=== PATIENT | male | born 1945 | race Caucasian/White ===

== ENCOUNTER 2017-08-25 00:47 | Inpatient (IN) | payer MEDICARE, MEDICAID ==
[~2017-08-25] VITALS: Ht 162.6 cm; Wt 63.3 kg
[2017-08-25] MEDS ORDERED: PHEN15TA2 PO (01:06)
[2017-08-25] MEDS ORDERED: AMOX125T PO (01:06)
[2017-08-25] MEDS ORDERED: BACITRACIN ZINC OINT 500U/GM, 0.9 GM ONE (02:13)
[2017-08-25 03:40] VITALS: BP 161/76
[2017-08-25] MEDS ORDERED: hydrALAzine 20 MG/ML, 1ML IVPush PRN (04:00)
[2017-08-25] MEDS ORDERED: ACETAMINOPHEN 325 MG TABLET PO PRN (04:00)
[2017-08-25] MEDS ORDERED: POLYETHYLENE GLYCOL 17 GM PACKET PO PRN (04:00)
[2017-08-25] MEDS ORDERED: PROMETHAZINE 25 MG/ML, 1ML IM PRN (04:00)
[2017-08-25] MEDS ORDERED: morphine SULFATE 10 MG/ML, 1ML IVPush PRN (04:00)
[2017-08-25] MEDS ORDERED: ONDANSETRON ODT 4 MG PO PRN (04:00)
[2017-08-25] MEDS ORDERED: OXYcodone IR 5MG TABLET PO PRN (04:00)
[2017-08-25] MEDS ORDERED: BISACODYL 10 MG SUPP PR PRN (04:00)
[2017-08-25] MEDS ORDERED: DOCUSATE 100 MG CAPSULE PO PRN (04:00)
[2017-08-25] MEDS ORDERED: ONDANSETRON 2MG/ML, 2ML IVPush PRN (04:00)
[2017-08-25 05:37] LABS: BASOPHILS # (AUTO) 0.04 x10^3/uL (0-0.1); BASOPHILS % (AUTO) 1 % (0-1); EOSINOPHILS # (AUTO) 0.22 x10^3/uL (0-0.4); EOSINOPHILS % (AUTO) 3 % (1-7); LYMPHOCYTES # (AUTO) 1.38 x10^3/uL (1-3.4); LYMPHOCYTES % (AUTO) 19 % (22-44); MD NO; MEAN CORPUSCULAR HGB CONC 33.7 g/dL (33.2-36.2); MEAN CORPUSCULAR VOLUME 91.9 fL (81-97); MEAN PLATELET VOLUME 8.6 fL (7.4-10.4); MONOCYTES # (AUTO) 0.87 x10^3/uL (0.2-0.8); MONOCYTES % (AUTO) 12 % (2-9); NEUTROPHILS # (AUTO) 4.72 x10^3/uL (1.8-6.8); NEUTROPHILS % (AUTO) 65 % (42-75); PLATELET COUNT 327 x10^3/uL (130-400); RED BLOOD COUNT 3.39 x10^6/uL (4.38-5.82); RED CELL DISTRIBUTION WIDTH 15.1 % (9.4-14.8)
[2017-08-25 06:50] LABS: ALANINE AMINOTRANSFERASE 22 U/L (12-78); ALBUMIN 2.6 g/dL (3.4-5.0); ALKALINE PHOSPHATASE 123 U/L (45-117); ANION GAP 8 mmol/L (5-15); BILIRUBIN,TOTAL 0.5 mg/dL (0.2-1.0); CALCIUM 8.7 mg/dL (8.5-10.1); CHLORIDE 107 mmol/L (98-107); CREATININE 0.48 mg/dL (0.7-1.3); TOTAL PROTEIN 6.7 g/dL (6.4-8.2)
[2017-08-25 07:05] VITALS: BP 152/69
[2017-08-25 07:05] LABS: HEMOGLOBIN A1C 5.3 % (4.2-6.3)
[2017-08-25 07:52] LABS: CREATININE 0.51 mg/dL (0.7-1.3)
[2017-08-25] MEDS: AMOXICILLIN/CLAV 875-125MG TABLET PO SCH ×2 (08:44→20:32)
[2017-08-25] MEDS: ENOXAPARIN 40 MG/0.4 ML SQ SCH (08:45)
[2017-08-25 12:50] VITALS: BP 117/71
[2017-08-25 14:26] LABS: CULTURE INDICATED? YES; MICROSCOPIC INDICATED
[2017-08-25 20:06] VITALS: BP 117/70
[2017-08-25] MEDS ORDERED: PRIM250T PO (21:57)
[2017-08-26 01:07] VITALS: BP 111/62
[2017-08-26] MEDS ORDERED: SODIUM CHLORIDE 0.9%, 500ML IVBOLUS ONE (04:00)
[2017-08-26 08:41] VITALS: BP 155/85
[2017-08-26] MEDS: PHENOBARBITAL 30 MG TABLET PO SCH (09:53)
[2017-08-26] MEDS: AMOXICILLIN/CLAV 875-125MG TABLET PO SCH ×2 (09:53→21:03)
[2017-08-26] MEDS: PRIMIDONE 250 MG TABLET PO SCH (09:54)
[2017-08-26] MEDS: ENOXAPARIN 40 MG/0.4 ML SQ SCH (09:54)
[2017-08-26 14:36] VITALS: BP 135/82
[2017-08-26 19:32] VITALS: BP 125/71
[2017-08-27 03:21] VITALS: BP 116/68
[2017-08-27 08:15] VITALS: BP 119/72
[2017-08-27] MEDS: AMOXICILLIN/CLAV 875-125MG TABLET PO SCH ×2 (09:24→21:24)
[2017-08-27] MEDS: ENOXAPARIN 40 MG/0.4 ML SQ SCH (09:24)
[2017-08-27] MEDS: PRIMIDONE 250 MG TABLET PO SCH (09:25)
[2017-08-27] MEDS: PHENOBARBITAL 30 MG TABLET PO SCH (09:25)
[2017-08-27 12:43] VITALS: BP 122/78
[2017-08-27 19:53] VITALS: BP 100/64
[2017-08-28 01:48] VITALS: BP 98/54
[2017-08-28 02:00] VITALS: BP 126/74
[2017-08-28 09:03] VITALS: BP 128/79
[2017-08-28] MEDS: ENOXAPARIN 40 MG/0.4 ML SQ SCH (10:13)
[2017-08-28] MEDS: AMOXICILLIN/CLAV 875-125MG TABLET PO SCH (10:14)
[2017-08-28] MEDS: PRIMIDONE 250 MG TABLET PO SCH (10:14)
[2017-08-28] MEDS: PHENOBARBITAL 30 MG TABLET PO SCH (10:14)
[2017-08-28 12:34] VITALS: BP 136/78
[2017-08-28] MEDS ORDERED: AMOX1TAB12 PO (13:20)
[2017-08-28] MEDS ORDERED: ENOX40SY4 SQ (13:20)
[2017-08-28] MEDS ORDERED: POLY17PO5 PO (13:20)
[2017-08-28] MEDS ORDERED: ACET325T14 PO (13:20)
[2017-08-28 13:31] VITALS: BP 131/82
== END 2017-08-28 17:16 | DRG 542 ==
LOC: ED 02:13 → 4EST 02:15
PROVIDERS: ADMIT Internal Medicine; ATTEND Internal Medicine
DX: M80.061A Age-related osteoporosis with current pathological fracture, right lower leg, initial encounter for fracture (principal); E43 Unspecified severe protein-calorie malnutrition; D64.9 Anemia, unspecified; G40.909 Epilepsy, unspecified, not intractable, without status epilepticus; Z66 Do not resuscitate; W18.2XXA Fall in (into) shower or empty bathtub, initial encounter; W18.39XA Other fall on same level, initial encounter; Y93.E1 Activity, personal bathing and showering
CPT/HCPCS: 36415; 80053; 81001; 82565; 83036; 83735; 85025; 87086; 99285; J1650; J7040

== ENCOUNTER 2017-10-26 19:48 | Inpatient (IN) | payer MEDICARE, MEDICAID ==
[~2017-10-26] VITALS: Ht 162.6 cm; Wt 66.1 kg
[~2017-10-26 19:48] MED LIST: ACET325T14 PO; AMOX125T PO; AMOX1TAB12 PO; ENOX40SY4 SQ; PHEN15TA2 PO; POLY17PO5 PO; PRIM250T PO
[2017-10-26] MEDS ORDERED: ZOLP-413 PO (20:02)
[2017-10-26] MEDS ORDERED: PRIM250T PO (20:02)
[2017-10-26] MEDS ORDERED: LOPE2CAP94 PO (20:02)
[2017-10-26] MEDS ORDERED: OXYC-302 PO (20:02)
[2017-10-26] MEDS ORDERED: ENOX40SY4 SQ (20:02)
[2017-10-26] MEDS ORDERED: PHEN32.4 PO (20:02)
[2017-10-26] MEDS ORDERED: SODIUM CHLORIDE FLUSH 10ML SYR IVF PRN (21:30)
[2017-10-26] MEDS ORDERED: ONDANSETRON ODT 4 MG PO PRN (22:30)
[2017-10-26] MEDS ORDERED: LEVOFLOXACIN 750 MG TABLET PO SCH (22:30)
[2017-10-26] MEDS ORDERED: BISACODYL 10 MG SUPP PR PRN (22:30)
[2017-10-26 22:55] VITALS: BP 142/75
[2017-10-26] MEDS: SULFAMETH./TRIMETHOPRIM DS 800MG/160MG TABLET PO SCH (23:26)
[2017-10-26] MEDS: ENOXAPARIN 40 MG/0.4 ML SQ SCH (23:27)
[2017-10-27 01:12] VITALS: BP 116/73
[2017-10-27 07:59] VITALS: BP 115/70
[2017-10-27] MEDS: DOCUSATE 100 MG CAPSULE PO SCH ×2 (09:00→19:22)
[2017-10-27] MEDS: POLYETHYLENE GLYCOL 17 GM PACKET PO SCH (09:00)
[2017-10-27] MEDS: SULFAMETH./TRIMETHOPRIM DS 800MG/160MG TABLET PO SCH (10:04)
[2017-10-27] MEDS: PHENOBARBITAL 20 MG/5 ML ORAL SOL PO SCH (10:04)
[2017-10-27] MEDS: PRIMIDONE 250 MG TABLET PO SCH (10:04)
[2017-10-27] MEDS: DOXYCYCLINE 100MG TABLET PO SCH ×2 (12:07→19:59)
[2017-10-27] MEDS: CEPHALEXIN 500 MG CAPSULE PO SCH ×3 (12:07→19:59)
[2017-10-27 12:08] LABS: BASOPHILS # (AUTO) 0.03 x10^3/uL (0-0.1); BASOPHILS % (AUTO) 1 % (0-1); EOSINOPHILS # (AUTO) 0.21 x10^3/uL (0-0.4); EOSINOPHILS % (AUTO) 3 % (1-7); HCT (SEDRATE) 32.6 % (39.2-51.8); LYMPHOCYTES # (AUTO) 0.88 x10^3/uL (1-3.4); LYMPHOCYTES % (AUTO) 14 % (22-44); MD NO; MEAN CORPUSCULAR HEMOGLOBIN 30.5 pg (27.5-34.5); MEAN CORPUSCULAR HGB CONC 33.4 g/dL (33.2-36.2); MEAN CORPUSCULAR VOLUME 91.3 fL (81-97); MEAN PLATELET VOLUME 7.8 fL (7.4-10.4); MONOCYTES # (AUTO) 0.48 x10^3/uL (0.2-0.8); MONOCYTES % (AUTO) 8 % (2-9); NEUTROPHILS # (AUTO) 4.73 x10^3/uL (1.8-6.8); NEUTROPHILS % (AUTO) 75 % (42-75); PLATELET COUNT 326 x10^3/uL (130-400); RED BLOOD COUNT 3.57 x10^6/uL (4.38-5.82); RED CELL DISTRIBUTION WIDTH 13.1 % (9.4-14.8)
[2017-10-27 12:25] LABS: ALBUMIN 2.2 g/dL (3.4-5.0); ANION GAP 6 mmol/L (5-15); CHLORIDE 106 mmol/L (98-107); CREATININE 0.62 mg/dL (0.7-1.3)
[2017-10-27 14:11] VITALS: BP 100/62
[2017-10-27 19:45] VITALS: BP 109/69
[2017-10-27] MEDS: ENOXAPARIN 40 MG/0.4 ML SQ SCH (22:30)
[2017-10-28 00:20] VITALS: BP 120/70
[2017-10-28 08:05] VITALS: BP 106/64
[2017-10-28] MEDS: POLYETHYLENE GLYCOL 17 GM PACKET PO SCH (09:00)
[2017-10-28] MEDS: DOCUSATE 100 MG CAPSULE PO SCH ×2 (09:00→20:46)
[2017-10-28] MEDS: DOXYCYCLINE 100MG TABLET PO SCH ×2 (12:28→20:45)
[2017-10-28] MEDS: CEPHALEXIN 500 MG CAPSULE PO SCH ×3 (12:28→20:45)
[2017-10-28] MEDS: PHENOBARBITAL 20 MG/5 ML ORAL SOL PO SCH (12:28)
[2017-10-28] MEDS: PRIMIDONE 250 MG TABLET PO SCH (12:29)
[2017-10-28 20:45] VITALS: BP 120/66
[2017-10-28] MEDS: ENOXAPARIN 40 MG/0.4 ML SQ SCH (20:53)
[2017-10-29 01:15] VITALS: BP 115/62
[2017-10-29 08:20] VITALS: BP 111/63
[2017-10-29] MEDS: PHENOBARBITAL 20 MG/5 ML ORAL SOL PO SCH ×2 (09:00→10:57)
[2017-10-29] MEDS: POLYETHYLENE GLYCOL 17 GM PACKET PO SCH (09:00)
[2017-10-29] MEDS: PRIMIDONE 250 MG TABLET PO SCH (10:57)
[2017-10-29] MEDS: CEPHALEXIN 500 MG CAPSULE PO SCH (10:57)
[2017-10-29] MEDS: DOXYCYCLINE 100MG TABLET PO SCH (10:57)
[2017-10-29] MEDS: DOCUSATE 100 MG CAPSULE PO SCH ×2 (10:58→20:53)
[2017-10-29] MEDS ORDERED: ACET325T14 PO (12:02)
[2017-10-29] MEDS ORDERED: LINE600T33 PO (12:02)
[2017-10-29] MEDS ORDERED: ONDA4TAB13 PO (12:02)
[2017-10-29 14:09] VITALS: BP 101/65
[2017-10-29 19:10] VITALS: BP 114/65
[2017-10-29] MEDS: ENOXAPARIN 40 MG/0.4 ML SQ SCH (20:53)
[2017-10-30 02:00] VITALS: BP 110/60
[2017-10-30 07:32] VITALS: BP 123/73
[2017-10-30] MEDS: PRIMIDONE 250 MG TABLET PO SCH (08:52)
[2017-10-30] MEDS: LINEZOLID 600 MG TABLET PO SCH ×2 (08:52→19:31)
[2017-10-30] MEDS: OXYBUTYNIN CHLORIDE 5 MG TABLET PO SCH ×3 (08:53→19:31)
[2017-10-30] MEDS: POLYETHYLENE GLYCOL 17 GM PACKET PO SCH (08:54)
[2017-10-30] MEDS: DOCUSATE 100 MG CAPSULE PO SCH ×2 (08:54→19:31)
[2017-10-30] MEDS: PHENOBARBITAL 20 MG/5 ML ORAL SOL PO SCH (08:56)
[2017-10-30 12:35] VITALS: BP 125/73
[2017-10-30 19:02] VITALS: BP 152/75
[2017-10-30] MEDS: ENOXAPARIN 40 MG/0.4 ML SQ SCH (21:26)
[2017-10-31 00:40] VITALS: BP 128/70
[2017-10-31] MEDS: ACETAMINOPHEN 325 MG TABLET PO PRN ×2 (02:06→20:06)
[2017-10-31 07:40] VITALS: BP 103/60
[2017-10-31] MEDS: PHENOBARBITAL 20 MG/5 ML ORAL SOL PO SCH (09:00)
[2017-10-31] MEDS: POLYETHYLENE GLYCOL 17 GM PACKET PO SCH (09:00)
[2017-10-31] MEDS: DOCUSATE 100 MG CAPSULE PO SCH ×2 (09:00→20:07)
[2017-10-31] MEDS: LINEZOLID 600 MG TABLET PO SCH ×2 (09:17→20:06)
[2017-10-31] MEDS: PRIMIDONE 250 MG TABLET PO SCH (09:17)
[2017-10-31] MEDS: OXYBUTYNIN CHLORIDE 5 MG TABLET PO SCH ×3 (09:18→20:06)
[2017-10-31 12:59] VITALS: BP 112/67
[2017-10-31 21:43] VITALS: BP 120/71
[2017-10-31] MEDS: ENOXAPARIN 40 MG/0.4 ML SQ SCH (21:54)
[2017-11-01] MEDS: ACETAMINOPHEN 325 MG TABLET PO PRN ×2 (00:46→19:56)
[2017-11-01 02:57] VITALS: BP 104/66
[2017-11-01 07:23] VITALS: BP 113/66
[2017-11-01] MEDS: POLYETHYLENE GLYCOL 17 GM PACKET PO SCH (09:00)
[2017-11-01] MEDS: DOCUSATE 100 MG CAPSULE PO SCH ×2 (09:00→19:57)
[2017-11-01] MEDS: PHENOBARBITAL 20 MG/5 ML ORAL SOL PO SCH (09:00)
[2017-11-01] MEDS: PRIMIDONE 250 MG TABLET PO SCH (09:32)
[2017-11-01] MEDS: OXYBUTYNIN CHLORIDE 5 MG TABLET PO SCH ×3 (09:33→19:56)
[2017-11-01] MEDS: LINEZOLID 600 MG TABLET PO SCH ×2 (09:33→19:56)
[2017-11-01 13:34] VITALS: BP 106/66
[2017-11-01 18:54] VITALS: BP 107/67
[2017-11-01] MEDS: ENOXAPARIN 40 MG/0.4 ML SQ SCH (23:02)
[2017-11-02 01:08] VITALS: BP 116/70
[2017-11-02 06:54] VITALS: BP 109/71
[2017-11-02] MEDS: DOCUSATE 100 MG CAPSULE PO SCH ×2 (08:17→21:00)
[2017-11-02] MEDS: PRIMIDONE 250 MG TABLET PO SCH (08:17)
[2017-11-02] MEDS: POLYETHYLENE GLYCOL 17 GM PACKET PO SCH (08:17)
[2017-11-02] MEDS: LINEZOLID 600 MG TABLET PO SCH ×2 (08:17→21:35)
[2017-11-02] MEDS: OXYBUTYNIN CHLORIDE 5 MG TABLET PO SCH ×3 (08:17→21:35)
[2017-11-02] MEDS: PHENOBARBITAL 20 MG/5 ML ORAL SOL PO SCH (08:18)
[2017-11-02 12:41] VITALS: BP 112/67
[2017-11-02 19:36] VITALS: BP 94/57
[2017-11-02] MEDS: ENOXAPARIN 40 MG/0.4 ML SQ SCH (21:35)
[2017-11-03 02:04] VITALS: BP 103/65
[2017-11-03 07:45] VITALS: BP 98/61
[2017-11-03] MEDS: LINEZOLID 600 MG TABLET PO SCH ×2 (08:47→21:07)
[2017-11-03] MEDS: POLYETHYLENE GLYCOL 17 GM PACKET PO SCH (08:48)
[2017-11-03] MEDS: OXYBUTYNIN CHLORIDE 5 MG TABLET PO SCH ×3 (08:48→21:00)
[2017-11-03] MEDS: PRIMIDONE 250 MG TABLET PO SCH (08:48)
[2017-11-03] MEDS: PHENOBARBITAL 20 MG/5 ML ORAL SOL PO SCH (08:48)
[2017-11-03] MEDS: DOCUSATE 100 MG CAPSULE PO SCH ×2 (08:48→21:00)
[2017-11-03 13:41] VITALS: BP 103/63
[2017-11-03 20:01] VITALS: BP 109/73
[2017-11-03] MEDS: ENOXAPARIN 40 MG/0.4 ML SQ SCH (21:07)
[2017-11-04 00:25] VITALS: BP 106/62
[2017-11-04 08:59] VITALS: BP 97/61
[2017-11-04] MEDS: PHENOBARBITAL 20 MG/5 ML ORAL SOL PO SCH (09:00)
[2017-11-04] MEDS: DOCUSATE 100 MG CAPSULE PO SCH ×2 (09:00→21:00)
[2017-11-04] MEDS: POLYETHYLENE GLYCOL 17 GM PACKET PO SCH (09:00)
[2017-11-04] MEDS: LINEZOLID 600 MG TABLET PO SCH ×2 (11:03→21:12)
[2017-11-04] MEDS: PRIMIDONE 250 MG TABLET PO SCH (11:04)
[2017-11-04] MEDS: OXYBUTYNIN CHLORIDE 5 MG TABLET PO SCH ×3 (11:04→21:12)
[2017-11-04 14:50] VITALS: BP 113/63
[2017-11-04 19:34] VITALS: BP 109/66
[2017-11-04] MEDS: ENOXAPARIN 40 MG/0.4 ML SQ SCH (21:11)
[2017-11-05 00:41] VITALS: BP 111/66
[2017-11-05 07:01] VITALS: BP 113/69
[2017-11-05] MEDS: POLYETHYLENE GLYCOL 17 GM PACKET PO SCH (08:32)
[2017-11-05] MEDS: DOCUSATE 100 MG CAPSULE PO SCH (08:32)
[2017-11-05] MEDS: PHENOBARBITAL 20 MG/5 ML ORAL SOL PO SCH (09:00)
[2017-11-05] MEDS: PRIMIDONE 250 MG TABLET PO SCH (10:11)
[2017-11-05] MEDS: LINEZOLID 600 MG TABLET PO SCH (10:12)
[2017-11-05] MEDS: OXYBUTYNIN CHLORIDE 5 MG TABLET PO SCH (10:12)
[2017-11-05] MEDS ORDERED: PHENOBARBITAL 30 MG TABLET PO SCH (10:30)
[2017-11-05 12:35] VITALS: BP 124/70
[2017-11-05] MEDS ORDERED: LINE600T33 PO (13:17)
== END 2017-11-05 13:00 | disposition home health service (06) | DRG 602 ==
LOC: ED 21:28 → INTOOBSV 21:50 → EDIP 21:50 → 3NE 22:44 → OBSVTOIN 10-28 08:53
PROVIDERS: ADMIT Family Medicine; ATTEND Family Medicine
DX: L03.115 Cellulitis of right lower limb (principal); E43 Unspecified severe protein-calorie malnutrition; L97.919 Non-pressure chronic ulcer of unspecified part of right lower leg with unspecified severity; G82.20 Paraplegia, unspecified; E87.6 Hypokalemia; K59.00 Constipation, unspecified; D64.9 Anemia, unspecified; B95.62 Methicillin resistant Staphylococcus aureus infection as the cause of diseases classified elsewhere; G40.909 Epilepsy, unspecified, not intractable, without status epilepticus; I73.9 Peripheral vascular disease, unspecified; I87.8 Other specified disorders of veins; Z66 Do not resuscitate
CPT/HCPCS: 36415; 80069; 82565; 85025; 85651; 86140; 87070; 87077; 87186; 87205; 93922; 93970; 99285; G0378; J1650